=== PATIENT | female | born 1945 | race Two or more races ===

== ENCOUNTER 2022-04-27 19:58 | Emergency (ER) | payer OTHER ==
[~2022-04-27] VITALS: Ht 160 cm; Wt 72.6 kg
[2022-04-27] MEDS ORDERED: LEVOTHYROXINE25 MCG (20:58)
[2022-04-27] MEDS ORDERED: SIMVASTATIN5 MG (20:58)
[2022-04-27] MEDS ORDERED: NEURONTIN300 MG (20:59)
[2022-04-27] MEDS ORDERED: HYZAAR 100-12.1 EACH (20:59)
[2022-04-27] MEDS ORDERED: HUMULIN N100 UNIT/2 (21:00)
[2022-04-27] MEDS ORDERED: HUMULIN R100 UNIT/1 (21:00)
== END 2022-04-27 23:16 | disposition home or self-care (01) ==
LOC: ER 19:58
DX: L03.115 Cellulitis of right lower limb (principal); E11.9 Type 2 diabetes mellitus without complications; Z79.4 Long term (current) use of insulin; I10 Essential (primary) hypertension; E03.9 Hypothyroidism, unspecified

== ENCOUNTER 2022-05-03 21:06 | Inpatient (IN) | payer OTHER ==
[~2022-05-03 21:06] MED LIST: HUMULIN N100 UNIT/2; HUMULIN R100 UNIT/1; HYZAAR 100-12.1 EACH; LEVOTHYROXINE25 MCG; NEURONTIN300 MG; SIMVASTATIN5 MG
[2022-05-18] MEDS ORDERED: CARVEDILOL3.125 MG PO (09:01)
[2022-05-18] MEDS ORDERED: CARdura 2MG TABLET PO (09:01)
[2022-05-18] MEDS ORDERED: SIMVASTATIN20 MG PO (09:01)
[2022-05-18] MEDS ORDERED: ASA325 MG PO (09:01)
[2022-05-18] MEDS ORDERED: HYDRALAZINE HCL50 MG PO (09:01)
[2022-05-18] MEDS ORDERED: LOSARTAN-HCTZ1 EAC2 PO (09:01)
[2022-05-18] MEDS ORDERED: GABAPENTIN300 MG PO (09:01)
[2022-05-18] MEDS ORDERED: AMLODIPINE BESY10 MG PO (09:01)
== END 2022-05-18 19:09 | disposition home or self-care (01) | DRG 65 ==
LOC: ER 21:06 → ICU-2 05-04 09:39 → ICU 05-07 21:39 → MEDI 05-14 11:44
PROVIDERS: ADMIT Internal Medicine; ATTEND Internal Medicine
PROC: B24BZZZ Ultrasonography of Heart with Aorta (ICD-10-PCS; 2022-05-04)
PROC: B345ZZZ Ultrasonography of Bilateral Common Carotid Arteries (ICD-10-PCS; 2022-05-04)
PROC: B030ZZZ Magnetic Resonance Imaging (MRI) of Brain (ICD-10-PCS; 2022-05-04)
PROC: BW28ZZZ Computerized Tomography (CT Scan) of Head (ICD-10-PCS; 2022-05-06)
PROC: 4A12X4Z Monitoring of Cardiac Electrical Activity, External Approach (ICD-10-PCS; principal; 2022-05-14)
DX: I63.81 Other cerebral infarction due to occlusion or stenosis of small artery (principal); I16.9 Hypertensive crisis, unspecified; N17.8 Other acute kidney failure; R47.81 Slurred speech; R47.01 Aphasia; R41.82 Altered mental status, unspecified; Z85.42 Personal history of malignant neoplasm of other parts of uterus; E03.9 Hypothyroidism, unspecified; E11.65 Type 2 diabetes mellitus with hyperglycemia; Z79.4 Long term (current) use of insulin; Z20.822 Contact with and (suspected) exposure to COVID-19; I25.10 Atherosclerotic heart disease of native coronary artery without angina pectoris; Z98.61 Coronary angioplasty status; I11.9 Hypertensive heart disease without heart failure; Z74.01 Bed confinement status
CPT/HCPCS: 70551

== ENCOUNTER 2022-07-03 14:44 | Emergency (ER) | payer OTHER ==
[~2022-07-03] VITALS: Ht 157.5 cm; Wt 68.0 kg
[~2022-07-03 14:44] MED LIST changes: +AMLODIPINE BESY10 MG PO; +ASA325 MG PO; +CARVEDILOL3.125 MG PO; +CARdura 2MG TABLET PO; +GABAPENTIN300 MG PO; +HYDRALAZINE HCL50 MG PO; +LOSARTAN-HCTZ1 EAC2 PO; +SIMVASTATIN20 MG PO
[2022-07-03] MEDS ORDERED: HYDRALAZINE HC100 MG PO (14:56)
[2022-07-03] MEDS ORDERED: ACTOS15 MG PO (14:56)
[2022-07-03] MEDS ORDERED: AMLODIPINE-OLM1 EAC3 PO (14:56)
[2022-07-03] MEDS ORDERED: DOXAZOSIN MESYLA2 MG PO (14:56)
[2022-07-03] MEDS ORDERED: PEPCID AC20 MG PO (14:57)
[2022-07-03] MEDS ORDERED: LIPITOR80 MG PO (14:57)
[2022-07-03] MEDS ORDERED: NOXIFOL-D32500 UNIT PO (14:57)
[2022-07-03] MEDS ORDERED: ASA325 MG PO (14:57)
[2022-07-03] MEDS ORDERED: SYNTHROID50 MCG PO (14:57)
[2022-07-03] MEDS ORDERED: TRAZODONE HCL150 MG (14:58)
[2022-07-03] MEDS ORDERED: GABAPENTIN300 M2 PO (14:59)
[2022-07-03] MEDS ORDERED: JARDIANCE10 MG PO (14:59)
== END 2022-07-03 22:27 | disposition home or self-care (01) ==
LOC: ER 14:44
DX: R51.9 Headache, unspecified (principal); N39.0 Urinary tract infection, site not specified; I10 Essential (primary) hypertension; E11.9 Type 2 diabetes mellitus without complications; C55 Malignant neoplasm of uterus, part unspecified; Z86.73 Personal history of transient ischemic attack (TIA), and cerebral infarction without residual deficits